=== PATIENT | female | born 1940 | race Caucasian/White ===

== ENCOUNTER 2017-10-31 20:11 | Inpatient (IN) | payer MEDICARE, BC ==
[~2017-10-31] VITALS: Ht 154.9 cm; Wt 50.9 kg
[~2017-10-31 20:11] MED LIST: AMLO5TAB2 PO; ATOR40TA3 PO; AZIT-63 PO; AZIT250T81 PO; BUDE10.2 INH; HYDR-3972 PO; QUIN40TA14 PO; SPIIN IH; SPIIN INH
[2017-10-31 21:11] LABS: BASOPHILS # (AUTO) 0.1 X10'3 (0-0.2); EOSINOPHILS % (AUTO) 0.1 % (0-6); HEMATOCRIT 39.9 % (35.0-45.0); HEMOGLOBIN 13.8 g/dl (12.0-16.0); LYMPHOCYTES # (AUTO) 1.9 X10'3 (1.1-4.8); LYMPHOCYTES % (AUTO) 12.8 % (21-51); MEAN CORPUSCULAR HEMOGLOBIN 29.5 PG (27.0-31.0); MEAN CORPUSCULAR HGB CONC 34.5 % (33.0-36.5); MEAN CORPUSCULAR VOLUME 85.6 FL (78-98); MEAN PLATELET VOLUME 6.7 FL (7.4-10.4); MONOCYTES # (AUTO) 1.2 X10'3 (0-0.9); MONOCYTES % (AUTO) 7.9 % (2-12); NEUTROPHILS # (AUTO) 11.8 X10'3 (1.8-7.7); NEUTROPHILS % (AUTO) 78.2 % (42-75); PLATELET COUNT 610 X10'3 (140-440); RED BLOOD COUNT 4.66 X10'6 (4.20-5.60); RED CELL DISTRIBUTION WIDTH 14.4 % (11.5-14.5); WHITE BLOOD COUNT 15.1 X10'3 (4.5-11.0)
[2017-10-31 21:23] LABS: INR 0.9 INR; PARTIAL THROMBOPLASTIN TIME 26 SECONDS (22-32); PROTHROMBIN TIME 9.6 SECONDS (9.0-12.0)
[2017-10-31 21:36] LABS: ALANINE AMINOTRANSFERASE 27 U/L (12-78); ALBUMIN/GLOBULIN RATIO 1.1 (1.1-1.5); ALKALINE PHOSPHATASE 115 IU/L (46-116); ANION GAP 14 (8-16); ASPARTATE AMINO TRANSFERASE 32 U/L (10-37); BILIRUBIN,TOTAL 0.7 MG/DL (0.1-1.0); BLOOD UREA NITROGEN 19 MG/DL (7-18); BUN/CREATININE RATIO 21.6 (6.6-38.0); CALCIUM 9.7 MG/DL (8.5-10.1); CHLORIDE 100 MMOL/L (99-107); CREATININE 0.88 MG/DL (0.40-0.90); GLUCOSE 127 MG/DL (70-104); POTASSIUM 4.4 MMOL/L (3.5-5.1); SODIUM 137 MMOL/L (135-145); TOTAL CARBON DIOXIDE 23.3 MMOL/L (24-32); TOTAL PROTEIN 7.5 G/DL (6.4-8.2); eGFR 62 ML/MIN
[2017-10-31] MEDS ORDERED: methylPREDNISolone sod succ 125mg/2ml vial IV ONE (23:45)
[2017-10-31] MEDS ORDERED: albuterol 2.5 MG/3 ML nebule CONTNEB PRN (23:45)
[2017-10-31] MEDS ORDERED: morphine 4 MG/ML inj SYRINge IV ONE (23:45)
[2017-10-31] MEDS ORDERED: ondansetron/PF 4mg/2ml inj IV ONE (23:45)
[2017-11-01] MEDS ORDERED: morphine 4 MG/ML inj SYRINge IV ONE ×2 (01:10→03:10)
[2017-11-01] MEDS ORDERED: iohexol 300mg/ml 100ml inj. ONE (01:13)
[2017-11-01] MEDS ORDERED: HYDROcodone/acetaminophen 10/325mg tab PO PRN (03:30)
[2017-11-01] MEDS ORDERED: magnesium hydroxide 30ml (MOM) UD suspension PO PRN (03:30)
[2017-11-01] MEDS ORDERED: acetaminophen 325mg tablet PO PRN (03:30)
[2017-11-01] MEDS ORDERED: mag hydrox/Alum hydrox/simeth 30ml oral suspension PO PRN (03:30)
[2017-11-01] MEDS ORDERED: QUIN20TA PO (03:41)
[2017-11-01] MEDS: famotidine 20mg tablet PO SCH ×2 (05:29→20:14)
[2017-11-01] MEDS ORDERED: amLODIPine 5mg tablet PO SCH (08:00)
[2017-11-01] MEDS ORDERED: enoxaparin 40mg/0.4ml syringe SUBCUT SCH (08:00)
[2017-11-01] MEDS ORDERED: lisinopril 20mg tablet PO SCH (08:00)
[2017-11-01] MEDS: lisinopril 20mg tablet PO SCH (08:00)
[2017-11-01] MEDS: methylPREDNISolone sod succ/PF 40mg inj. IV SCH ×2 (08:03→20:13)
[2017-11-01] MEDS: atorvastatin 20mg tablet PO SCH (08:04)
[2017-11-01] MEDS: montelukast 10mg tablet PO SCH (08:04)
[2017-11-01] MEDS: docusate sod 100mg capsule PO SCH ×2 (08:05→20:14)
[2017-11-01] MEDS: oxyCODONE IR 5mg (immed. release) tablet PO SCH ×4 (08:05→20:14)
[2017-11-01] MEDS ORDERED: heparin 10,000 units/1 ML INJ IV ONE (08:15)
[2017-11-01 08:27] LABS: BASOPHILS % (AUTO) 0 % (0-1); EOSINOPHILS # (AUTO) 0.3 X10'3 (0-0.9); EOSINOPHILS % (AUTO) 1.7 % (0-6); HEMATOCRIT 40.1 % (35.0-45.0); HEMOGLOBIN 13.6 g/dl (12.0-16.0); LYMPHOCYTES # (AUTO) 0.5 X10'3 (1.1-4.8); MEAN CORPUSCULAR HEMOGLOBIN 29.3 PG (27.0-31.0); MEAN CORPUSCULAR HGB CONC 33.9 % (33.0-36.5); MEAN CORPUSCULAR VOLUME 86.6 FL (78-98); MEAN PLATELET VOLUME 7.4 FL (7.4-10.4); MONOCYTES # (AUTO) 0.2 X10'3 (0-0.9); MONOCYTES % (AUTO) 1.3 % (2-12); NEUTROPHILS # (AUTO) 15.1 X10'3 (1.8-7.7); PLATELET COUNT 542 X10'3 (140-440); RED BLOOD COUNT 4.63 X10'6 (4.20-5.60); RED CELL DISTRIBUTION WIDTH 14.8 % (11.5-14.5); WHITE BLOOD COUNT 16.1 X10'3 (4.5-11.0)
[2017-11-01 09:18] LABS: PARTIAL THROMBOPLASTIN TIME 32 SECONDS (22-32)
[2017-11-01] MEDS ORDERED: aspirin 325mg tablet, delayed-release (Ecotrin) PO ONE (09:45)
[2017-11-01] MEDS ORDERED: metoprolol tartrate 25mg tablet PO SCH (09:45)
[2017-11-01] MEDS: morphine 4 MG/ML inj SYRINge IV PRN ×3 (11:33→22:07)
[2017-11-01] MEDS: carVEDilol 3.125mg tablet PO SCH ×2 (13:27→20:14)
[2017-11-01 13:57] LABS: CLARITY,URINE CLEAR (Clear); COLOR,URINE YELLOW (Yellow); GLUCOSE, URINE NEGATIVE (Neg); KETONES,URINE NEGATIVE (Neg); LEUKOCYTE ESTERASE ,URINE NEGATIVE (Neg); NITRITES, URINE NEGATIVE (Neg); OCCULT BLOOD,URINE NEGATIVE (Neg); PH,URINE 5.5 (4.8-8.0); PROTEIN,URINE TRACE mg/dl (Neg); UROBILINOGEN,URINE 0.2 E.U/dL (0.2-1.0)
[2017-11-01 14:01] LABS: UA COLLECTION TYPE VOIDED
[2017-11-01 14:02] LABS: SQUAMOUS EPITHELIAL CELL,UR FEW /LPF (FEW)
[2017-11-01 14:04] LABS: BACTERIA,URINE FEW /HPF (Neg); RBC,URINE 0-2 /HPF (0-2); WBC,URINE 0-4 /HPF (0-4)
[2017-11-01] MEDS: ipratropium/albuterol 3ml nebule IH PRN (14:49)
[2017-11-01] MEDS ORDERED: PRAV40TA3 (15:22)
[2017-11-01 15:44] LABS: PARTIAL THROMBOPLASTIN TIME 44 SECONDS (22-32)
[2017-11-01 21:00] VITALS: BP 100/60
[2017-11-01 22:46] LABS: PARTIAL THROMBOPLASTIN TIME 36 SECONDS (22-32)
[2017-11-01] MEDS: heparin 10,000 units/1 ML INJ IV PRN (23:47)
[2017-11-02] VITALS: BP 132/79
[2017-11-02] MEDS: oxyCODONE IR 5mg (immed. release) tablet PO SCH ×6 (00:41→20:53)
[2017-11-02] MEDS: morphine 4 MG/ML inj SYRINge IV PRN ×5 (05:49→23:15)
[2017-11-02 06:10] LABS: BASOPHILS # (AUTO) 0.1 X10'3 (0-0.2); BASOPHILS % (AUTO) 0.4 % (0-1); EOSINOPHILS % (AUTO) 0 % (0-6); HEMATOCRIT 36.7 % (35.0-45.0); HEMOGLOBIN 12.5 g/dl (12.0-16.0); LYMPHOCYTES # (AUTO) 0.9 X10'3 (1.1-4.8); LYMPHOCYTES % (AUTO) 5.7 % (21-51); MEAN CORPUSCULAR HEMOGLOBIN 29.6 PG (27.0-31.0); MEAN CORPUSCULAR HGB CONC 34.1 % (33.0-36.5); MEAN CORPUSCULAR VOLUME 86.7 FL (78-98); MEAN PLATELET VOLUME 7.4 FL (7.4-10.4); MONOCYTES # (AUTO) 0.7 X10'3 (0-0.9); MONOCYTES % (AUTO) 4.3 % (2-12); NEUTROPHILS # (AUTO) 14.9 X10'3 (1.8-7.7); NEUTROPHILS % (AUTO) 89.6 % (42-75); PLATELET COUNT 525 X10'3 (140-440); RED BLOOD COUNT 4.23 X10'6 (4.20-5.60); RED CELL DISTRIBUTION WIDTH 14.6 % (11.5-14.5); WHITE BLOOD COUNT 16.6 X10'3 (4.5-11.0)
[2017-11-02 06:24] LABS: ALBUMIN 3.4 G/DL (3.4-5.0); ANION GAP 9 (8-16); BLOOD UREA NITROGEN 35 MG/DL (7-18); BUN/CREATININE RATIO 26.3 (6.6-38.0); CALCIUM 9.5 MG/DL (8.5-10.1); CHLORIDE 99 MMOL/L (99-107); CREATININE 1.33 MG/DL (0.40-0.90); GLUCOSE 124 MG/DL (70-104); POTASSIUM 5.2 MMOL/L (3.5-5.1); SODIUM 134 MMOL/L (135-145); TOTAL CARBON DIOXIDE 25.7 MMOL/L (24-32); eGFR 38 ML/MIN
[2017-11-02 07:59] VITALS: BP 123/69
[2017-11-02] MEDS: atorvastatin 20mg tablet PO SCH (08:00)
[2017-11-02] MEDS: lisinopril 20mg tablet PO SCH (08:00)
[2017-11-02] MEDS ORDERED: aspirin 81mg tablet.DR PO SCH (08:30)
[2017-11-02] MEDS: methylPREDNISolone sod succ/PF 40mg inj. IV SCH ×2 (09:08→20:53)
[2017-11-02] MEDS: aspirin 81mg tablet.DR PO SCH (09:09)
[2017-11-02] MEDS: docusate sod 100mg capsule PO SCH ×2 (09:10→20:00)
[2017-11-02] MEDS: famotidine 20mg tablet PO SCH ×2 (09:10→20:53)
[2017-11-02] MEDS: montelukast 10mg tablet PO SCH (09:10)
[2017-11-02] MEDS: carVEDilol 3.125mg tablet PO SCH ×2 (09:10→20:53)
[2017-11-02] MEDS ORDERED: sodium polystyrene sulfonate 15gm/60ml oral suspension PO ONE (11:40)
[2017-11-02 12:20] VITALS: BP 118/56
[2017-11-02] MEDS: heparin 10,000 units/1 ML INJ IV PRN (13:12)
[2017-11-02] MEDS: ipratropium/albuterol 3ml nebule IH PRN (13:17)
[2017-11-02] MEDS: nitroGLYCERIN 1gm ointment UD TP SCH ×2 (13:19→20:54)
[2017-11-02] MEDS: levoFLOXACIN-Levaquin 500mg/D5 100 ML IV SCH (14:01)
[2017-11-02] MEDS: ondansetron/PF 4mg/2ml inj IV PRN ×2 (15:55→23:15)
[2017-11-02 19:00] VITALS: BP 111/76
[2017-11-02] MEDS: lisinopril 5mg tablet PO SCH (20:53)
[2017-11-02 23:45] VITALS: BP 125/69
[2017-11-03] VITALS: BP 120/61
[2017-11-03] MEDS: oxyCODONE IR 5mg (immed. release) tablet PO SCH ×6 (00:50→19:50)
[2017-11-03] MEDS: heparin 10,000 units/1 ML INJ IV PRN ×2 (02:29→10:29)
[2017-11-03] MEDS: nitroGLYCERIN 1gm ointment UD TP SCH ×4 (02:31→19:50)
[2017-11-03] MEDS: morphine 4 MG/ML inj SYRINge IV PRN ×4 (03:12→22:54)
[2017-11-03] MEDS: ipratropium/albuterol 3ml nebule NEB PRN ×4 (03:13→19:51)
[2017-11-03 05:10] LABS: BASOPHILS % (AUTO) 0.2 % (0-1); EOSINOPHILS # (AUTO) 0.1 X10'3 (0-0.9); EOSINOPHILS % (AUTO) 0.8 % (0-6); HEMATOCRIT 35.6 % (35.0-45.0); HEMOGLOBIN 12.3 g/dl (12.0-16.0); LYMPHOCYTES # (AUTO) 0.7 X10'3 (1.1-4.8); LYMPHOCYTES % (AUTO) 4.9 % (21-51); MEAN CORPUSCULAR HEMOGLOBIN 29.7 PG (27.0-31.0); MEAN CORPUSCULAR HGB CONC 34.6 % (33.0-36.5); MEAN CORPUSCULAR VOLUME 85.7 FL (78-98); MEAN PLATELET VOLUME 7.3 FL (7.4-10.4); MONOCYTES # (AUTO) 1.1 X10'3 (0-0.9); MONOCYTES % (AUTO) 7.5 % (2-12); NEUTROPHILS # (AUTO) 13.1 X10'3 (1.8-7.7); NEUTROPHILS % (AUTO) 86.6 % (42-75); PLATELET COUNT 481 X10'3 (140-440); RED BLOOD COUNT 4.15 X10'6 (4.20-5.60); RED CELL DISTRIBUTION WIDTH 14.7 % (11.5-14.5); WHITE BLOOD COUNT 15.1 X10'3 (4.5-11.0)
[2017-11-03 05:18] LABS: ANION GAP 10 (8-16); BLOOD UREA NITROGEN 37 MG/DL (7-18); BUN/CREATININE RATIO 32.5 (6.6-38.0); CALCIUM 8.8 MG/DL (8.5-10.1); CHLORIDE 98 MMOL/L (99-107); CREATININE 1.14 MG/DL (0.40-0.90); GLUCOSE 126 MG/DL (70-104); POTASSIUM 4.2 MMOL/L (3.5-5.1); SODIUM 136 MMOL/L (135-145); TOTAL CARBON DIOXIDE 27.6 MMOL/L (24-32); eGFR 46 ML/MIN
[2017-11-03 07:08] VITALS: BP 99/58
[2017-11-03] MEDS: atorvastatin 20mg tablet PO SCH (08:00)
[2017-11-03] MEDS: levoFLOXACIN-Levaquin 500mg/D5 100 ML IV SCH (08:41)
[2017-11-03] MEDS: methylPREDNISolone sod succ/PF 40mg inj. IV SCH ×2 (08:42→19:50)
[2017-11-03] MEDS: ondansetron/PF 4mg/2ml inj IV PRN (08:42)
[2017-11-03] MEDS: aspirin 81mg tablet.DR PO SCH (08:53)
[2017-11-03] MEDS: montelukast 10mg tablet PO SCH (08:54)
[2017-11-03] MEDS: famotidine 20mg tablet PO SCH ×2 (08:55→19:50)
[2017-11-03] MEDS: carVEDilol 3.125mg tablet PO SCH ×2 (08:56→19:50)
[2017-11-03] MEDS: docusate sod 100mg capsule PO SCH ×2 (08:56→19:50)
[2017-11-03 11:00] VITALS: BP 95/50
[2017-11-03 16:39] LABS: PARTIAL THROMBOPLASTIN TIME 58 SECONDS (22-32)
[2017-11-03 19:00] VITALS: BP 97/53
[2017-11-03 19:45] VITALS: BP 103/52
[2017-11-03] MEDS: lactobacillus rhamnosus 10,000 MMU CELLS/CAPSULE PO SCH (19:50)
[2017-11-03] MEDS: lisinopril 5mg tablet PO SCH (21:00)
[2017-11-03 23:45] VITALS: BP 101/62
[2017-11-04] MEDS: nitroGLYCERIN 1gm ointment UD TP SCH ×4 (02:13→20:15)
[2017-11-04] MEDS: ipratropium/albuterol 3ml nebule NEB PRN ×3 (02:23→20:49)
[2017-11-04] MEDS: morphine 4 MG/ML inj SYRINge IV PRN ×4 (02:42→22:55)
[2017-11-04] MEDS: oxyCODONE IR 5mg (immed. release) tablet PO SCH ×6 (04:38→20:14)
[2017-11-04 05:27] LABS: BASOPHILS % (AUTO) 0.2 % (0-1); EOSINOPHILS % (AUTO) 0 % (0-6); HEMATOCRIT 35.4 % (35.0-45.0); HEMOGLOBIN 11.9 g/dl (12.0-16.0); LYMPHOCYTES # (AUTO) 0.6 X10'3 (1.1-4.8); LYMPHOCYTES % (AUTO) 6.9 % (21-51); MEAN CORPUSCULAR HEMOGLOBIN 29.1 PG (27.0-31.0); MEAN CORPUSCULAR HGB CONC 33.6 % (33.0-36.5); MEAN CORPUSCULAR VOLUME 86.4 FL (78-98); MEAN PLATELET VOLUME 7.2 FL (7.4-10.4); MONOCYTES # (AUTO) 0.6 X10'3 (0-0.9); MONOCYTES % (AUTO) 6.8 % (2-12); NEUTROPHILS # (AUTO) 7.1 X10'3 (1.8-7.7); NEUTROPHILS % (AUTO) 86.1 % (42-75); PLATELET COUNT 440 X10'3 (140-440); RED BLOOD COUNT 4.09 X10'6 (4.20-5.60); RED CELL DISTRIBUTION WIDTH 14.7 % (11.5-14.5); WHITE BLOOD COUNT 8.2 X10'3 (4.5-11.0)
[2017-11-04 05:59] LABS: ALBUMIN 2.8 G/DL (3.4-5.0); ANION GAP 10 (8-16); BLOOD UREA NITROGEN 41 MG/DL (7-18); BUN/CREATININE RATIO 31.5 (6.6-38.0); CALCIUM 8.8 MG/DL (8.5-10.1); CHLORIDE 96 MMOL/L (99-107); GLUCOSE 117 MG/DL (70-104); POTASSIUM 3.9 MMOL/L (3.5-5.1); SODIUM 135 MMOL/L (135-145); TOTAL CARBON DIOXIDE 29.3 MMOL/L (24-32); eGFR 40 ML/MIN
[2017-11-04 08:00] VITALS: BP 126/57
[2017-11-04] MEDS: lactobacillus rhamnosus 10,000 MMU CELLS/CAPSULE PO SCH ×2 (08:00→20:13)
[2017-11-04] MEDS: aspirin 81mg tablet.DR PO SCH (08:00)
[2017-11-04] MEDS: docusate sod 100mg capsule PO SCH ×2 (08:00→20:14)
[2017-11-04] MEDS: atorvastatin 20mg tablet PO SCH (08:14)
[2017-11-04] MEDS: carVEDilol 3.125mg tablet PO SCH ×2 (08:15→20:14)
[2017-11-04] MEDS: famotidine 20mg tablet PO SCH ×2 (08:15→20:14)
[2017-11-04] MEDS: montelukast 10mg tablet PO SCH (08:16)
[2017-11-04] MEDS: methylPREDNISolone sod succ/PF 40mg inj. IV SCH ×2 (08:16→20:16)
[2017-11-04] MEDS: levoFLOXACIN-Levaquin 500mg/D5 100 ML IV SCH (08:17)
[2017-11-04] MEDS: heparin 10,000 units/1 ML INJ IV PRN (12:20)
[2017-11-04 18:00] VITALS: BP 114/72
[2017-11-04 18:39] VITALS: BP 145/70
[2017-11-04] MEDS: lisinopril 5mg tablet PO SCH (20:13)
[2017-11-05] MEDS: oxyCODONE IR 5mg (immed. release) tablet PO SCH ×7 (00:02→23:54)
[2017-11-05] MEDS: nitroGLYCERIN 1gm ointment UD TP SCH ×4 (04:09→20:29)
[2017-11-05 06:52] LABS: BASOPHILS % (AUTO) 0.4 % (0-1); EOSINOPHILS % (AUTO) 0 % (0-6); HEMATOCRIT 37.3 % (35.0-45.0); HEMOGLOBIN 12.8 g/dl (12.0-16.0); LYMPHOCYTES # (AUTO) 0.7 X10'3 (1.1-4.8); LYMPHOCYTES % (AUTO) 8.3 % (21-51); MEAN CORPUSCULAR HEMOGLOBIN 29.5 PG (27.0-31.0); MEAN CORPUSCULAR HGB CONC 34.2 % (33.0-36.5); MEAN CORPUSCULAR VOLUME 86.4 FL (78-98); MEAN PLATELET VOLUME 7.2 FL (7.4-10.4); MONOCYTES # (AUTO) 0.8 X10'3 (0-0.9); MONOCYTES % (AUTO) 9.5 % (2-12); NEUTROPHILS % (AUTO) 81.8 % (42-75); PLATELET COUNT 543 X10'3 (140-440); RED BLOOD COUNT 4.32 X10'6 (4.20-5.60); RED CELL DISTRIBUTION WIDTH 14.6 % (11.5-14.5); WHITE BLOOD COUNT 8.5 X10'3 (4.5-11.0)
[2017-11-05 07:01] LABS: ALBUMIN 2.7 G/DL (3.4-5.0); ANION GAP 5 (8-16); BLOOD UREA NITROGEN 34 MG/DL (7-18); CHLORIDE 100 MMOL/L (99-107); CREATININE 1.03 MG/DL (0.40-0.90); GLUCOSE 113 MG/DL (70-104); SODIUM 138 MMOL/L (135-145); TOTAL CARBON DIOXIDE 33.1 MMOL/L (24-32); eGFR 52 ML/MIN
[2017-11-05 07:48] VITALS: BP 112/68
[2017-11-05] MEDS: levoFLOXACIN-Levaquin 500mg/D5 100 ML IV SCH (08:54)
[2017-11-05] MEDS: famotidine 20mg tablet PO SCH ×2 (08:55→20:30)
[2017-11-05] MEDS: atorvastatin 20mg tablet PO SCH (08:55)
[2017-11-05] MEDS: montelukast 10mg tablet PO SCH (08:55)
[2017-11-05] MEDS: aspirin 81mg tablet.DR PO SCH (08:56)
[2017-11-05] MEDS: lactobacillus rhamnosus 10,000 MMU CELLS/CAPSULE PO SCH ×2 (08:56→20:29)
[2017-11-05] MEDS: docusate sod 100mg capsule PO SCH ×2 (08:56→20:31)
[2017-11-05] MEDS: carVEDilol 3.125mg tablet PO SCH ×2 (08:57→20:29)
[2017-11-05] MEDS: methylPREDNISolone sod succ/PF 40mg inj. IV SCH ×2 (08:57→20:29)
[2017-11-05] MEDS: morphine 4 MG/ML inj SYRINge IV PRN ×2 (11:05→23:53)
[2017-11-05 11:41] VITALS: BP 140/70
[2017-11-05 14:50] VITALS: BP 120/71
[2017-11-05] MEDS: ipratropium/albuterol 3ml nebule NEB PRN (16:01)
[2017-11-05] MEDS ORDERED: MONT10TA24 PO (17:13)
[2017-11-05] MEDS ORDERED: FAMO20TA8 PO (17:13)
[2017-11-05] MEDS ORDERED: LACT1CAP26 PO (17:13)
[2017-11-05] MEDS ORDERED: ASPI-1071 PO (17:13)
[2017-11-05] MEDS ORDERED: IPRA3AMP9 NEB (17:13)
[2017-11-05] MEDS ORDERED: COR3.125T PO (17:13)
[2017-11-05] MEDS ORDERED: LEVO500T2 PO (17:13)
[2017-11-05] MEDS ORDERED: FLUT1BLS3 INH (17:17)
[2017-11-05] MEDS ORDERED: UMEC62.5 INH (17:17)
[2017-11-05] MEDS ORDERED: METH4TAB81 PO (17:17)
[2017-11-05 20:00] VITALS: BP 126/61
[2017-11-05] MEDS: lisinopril 5mg tablet PO SCH (20:30)
[2017-11-05 23:00] VITALS: BP 147/73
[2017-11-06] MEDS: nitroGLYCERIN 1gm ointment UD TP SCH ×2 (02:29→08:40)
[2017-11-06] MEDS: oxyCODONE IR 5mg (immed. release) tablet PO SCH ×3 (04:00→11:40)
[2017-11-06 06:07] LABS: ALBUMIN 2.8 G/DL (3.4-5.0); ANION GAP 7 (8-16); BLOOD UREA NITROGEN 29 MG/DL (7-18); BUN/CREATININE RATIO 26.4 (6.6-38.0); CALCIUM 9.1 MG/DL (8.5-10.1); CHLORIDE 99 MMOL/L (99-107); GLUCOSE 117 MG/DL (70-104); POTASSIUM 3.9 MMOL/L (3.5-5.1); SODIUM 138 MMOL/L (135-145); TOTAL CARBON DIOXIDE 32.1 MMOL/L (24-32); eGFR 48 ML/MIN
[2017-11-06 06:49] LABS: BASOPHILS % (AUTO) 0.3 % (0-1); EOSINOPHILS % (AUTO) 0 % (0-6); HEMATOCRIT 37.4 % (35.0-45.0); HEMOGLOBIN 12.7 g/dl (12.0-16.0); LYMPHOCYTES # (AUTO) 0.9 X10'3 (1.1-4.8); LYMPHOCYTES % (AUTO) 9.2 % (21-51); MEAN CORPUSCULAR HEMOGLOBIN 29.4 PG (27.0-31.0); MEAN CORPUSCULAR HGB CONC 33.8 % (33.0-36.5); MEAN CORPUSCULAR VOLUME 87.1 FL (78-98); MEAN PLATELET VOLUME 7.8 FL (7.4-10.4); MONOCYTES # (AUTO) 0.7 X10'3 (0-0.9); MONOCYTES % (AUTO) 7.2 % (2-12); NEUTROPHILS # (AUTO) 8.4 X10'3 (1.8-7.7); NEUTROPHILS % (AUTO) 83.3 % (42-75); PLATELET COUNT 545 X10'3 (140-440); RED CELL DISTRIBUTION WIDTH 14.7 % (11.5-14.5)
[2017-11-06] MEDS: levoFLOXACIN-Levaquin 500mg/D5 100 ML IV SCH (08:38)
[2017-11-06] MEDS: carVEDilol 3.125mg tablet PO SCH (08:39)
[2017-11-06] MEDS: docusate sod 100mg capsule PO SCH (08:39)
[2017-11-06] MEDS: lactobacillus rhamnosus 10,000 MMU CELLS/CAPSULE PO SCH (08:39)
[2017-11-06] MEDS: methylPREDNISolone sod succ/PF 40mg inj. IV SCH (08:39)
[2017-11-06] MEDS: aspirin 81mg tablet.DR PO SCH (08:39)
[2017-11-06] MEDS: famotidine 20mg tablet PO SCH (08:40)
[2017-11-06] MEDS: montelukast 10mg tablet PO SCH (08:40)
[2017-11-06] MEDS: atorvastatin 20mg tablet PO SCH (08:40)
[2017-11-06 09:03] VITALS: BP 132/67
[2017-11-06 13:40] VITALS: BP 145/72
== END 2017-11-06 14:30 | disposition home or self-care (01) | DRG 280 ==
LOC: ER 20:12 → ED HOLD 11-01 03:28 → EDBEDREQ 11-01 19:42 → SUR 3N 11-01 22:00
PROVIDERS: ADMIT Family Medicine; ATTEND Internal Medicine
PROC: BW241ZZ Computerized Tomography (CT Scan) of Chest and Abdomen using Low Osmolar Contrast (ICD-10-PCS; principal; 2017-11-01)
DX: I21.4 Non-ST elevation (NSTEMI) myocardial infarction (principal); J18.9 Pneumonia, unspecified organism; J44.0 Chronic obstructive pulmonary disease with (acute) lower respiratory infection; S22.42XA Multiple fractures of ribs, left side, initial encounter for closed fracture; E87.5 Hyperkalemia; J44.1 Chronic obstructive pulmonary disease with (acute) exacerbation; W01.0XXA Fall on same level from slipping, tripping and stumbling without subsequent striking against object, initial encounter; E78.5 Hyperlipidemia, unspecified; I10 Essential (primary) hypertension; G89.29 Other chronic pain; I83.90 Asymptomatic varicose veins of unspecified lower extremity; J20.9 Acute bronchitis, unspecified; M54.9 Dorsalgia, unspecified; M81.0 Age-related osteoporosis without current pathological fracture; R33.9 Retention of urine, unspecified; R91.1 Solitary pulmonary nodule; N28.9 Disorder of kidney and ureter, unspecified; R09.02 Hypoxemia; Z53.29 Procedure and treatment not carried out because of patient's decision for other reasons; Z98.51 Tubal ligation status; Z72.0 Tobacco use; Z88.2 Allergy status to sulfonamides; Z79.899 Other long term (current) drug therapy; Z86.73 Personal history of transient ischemic attack (TIA), and cerebral infarction without residual deficits; Z82.5 Family history of asthma and other chronic lower respiratory diseases; Z71.6 Tobacco abuse counseling; Y93.89 Activity, other specified; Y92.89 Other specified places as the place of occurrence of the external cause; Y99.8 Other external cause status
CPT/HCPCS: 36415; 71045; 74176; 80048; 80053; 81001; 82800; 83605; 84145; 84484; 85025; 85610; 85730; 87040; 87070; 93306; 94640; 94760; 96374; 96375; 96376; 97116; 97161; 97530; 99285; A6212; A6213; A6223; A6258; A6446; A6449; J1644; J1650; J1956; J2270; J2405; J2920; J2930; Q9967

== ENCOUNTER 2019-07-13 10:48 | Emergency (ER) | payer MEDICARE, BC ==
[~2019-07-13] VITALS: Ht 154.9 cm; Wt 53.6 kg
[~2019-07-13 10:48] MED LIST changes: +ASPI-1071 PO; -ATOR40TA3 PO; -AZIT250T81 PO; +COR3.125T PO; +FAMO20TA8 PO; +FLUT1BLS3 INH; +IPRA3AMP9 NEB; +LACT1CAP26 PO; +METH4TAB81 PO; +MONT10TA24 PO; +PRAV40TA3; +QUIN20TA PO; -QUIN40TA14 PO; -SPIIN IH; +UMEC62.5 INH
[2019-07-13 11:04] VITALS: BP 205/80
[2019-07-13] MEDS ORDERED: HYDROcodone/acetaminophen 10/325mg tab PO ONE (13:25)
[2019-07-13] MEDS ORDERED: HYDR-4353 PO (14:55)
== END 2019-07-13 15:14 | disposition home or self-care (01) ==
LOC: ER 10:49
DX: S32.401A Unspecified fracture of right acetabulum, initial encounter for closed fracture (principal); S32.591A Other specified fracture of right pubis, initial encounter for closed fracture; I10 Essential (primary) hypertension; J44.9 Chronic obstructive pulmonary disease, unspecified; M81.0 Age-related osteoporosis without current pathological fracture; Z98.51 Tubal ligation status; Z98.890 Other specified postprocedural states; Z88.2 Allergy status to sulfonamides; Z88.1 Allergy status to other antibiotic agents; Z79.82 Long term (current) use of aspirin; Z79.899 Other long term (current) drug therapy; Z79.2 Long term (current) use of antibiotics; W18.39XA Other fall on same level, initial encounter; Y93.01 Activity, walking, marching and hiking; Y92.89 Other specified places as the place of occurrence of the external cause; Y99.8 Other external cause status
CPT/HCPCS: 72131; 72192; 99284

== ENCOUNTER 2019-09-14 12:38 | Emergency (ER) | payer MEDICARE, BC ==
[~2019-09-14] VITALS: Ht 167.6 cm; Wt 59.0 kg
[~2019-09-14 12:38] MED LIST changes: -MONT10TA24 PO; +MONT10TA26 PO
[2019-09-14] MEDS ORDERED: ipratropium/albuterol 3ml nebule NEB ONE (13:55)
[2019-09-14] MEDS ORDERED: morphine 4 MG/ML inj SYRINge IM ONE (13:55)
[2019-09-14] MEDS ORDERED: predniSONE 20 mg tablet PO ONE (13:55)
[2019-09-14] MEDS ORDERED: HYDROcodone/acetaminophen 10/325mg tab PO ONE (13:55)
[2019-09-14] MEDS ORDERED: PRED20TA PO (14:33)
[2019-09-14] MEDS ORDERED: ALBU18HF2 INH (14:33)
[2019-09-14] MEDS ORDERED: HYDR-4353 PO (14:33)
[2019-09-14 15:06] VITALS: BP 169/118
== END 2019-09-14 15:03 | disposition home or self-care (01) ==
LOC: ER 12:39
DX: M54.5 Low back pain (principal); J44.1 Chronic obstructive pulmonary disease with (acute) exacerbation; R91.1 Solitary pulmonary nodule; M54.6 Pain in thoracic spine; I10 Essential (primary) hypertension; M81.0 Age-related osteoporosis without current pathological fracture; Z98.51 Tubal ligation status; Z86.73 Personal history of transient ischemic attack (TIA), and cerebral infarction without residual deficits; Z88.2 Allergy status to sulfonamides; Z88.1 Allergy status to other antibiotic agents; Z79.82 Long term (current) use of aspirin; Z79.899 Other long term (current) drug therapy
CPT/HCPCS: 71045; 72100; 94640; 99284; J2270; J7512; 94760

== ENCOUNTER 2019-12-13 08:32 | Emergency (ER) | payer MEDICARE, BC ==
[~2019-12-13] VITALS: Ht 157.5 cm; Wt 42.0 kg
[~2019-12-13 08:32] MED LIST changes: +ALBU18HF2 INH
[2019-12-13] MEDS ORDERED: HYDROcodone/acetaminophen 10/325mg tab PO ONE (09:15)
[2019-12-13] MEDS ORDERED: losartan 50mg tablet PO ONE (09:30)
[2019-12-13 10:00] VITALS: BP 192/114
[2019-12-13] MEDS ORDERED: HYDR-4353 PO (10:03)
== END 2019-12-13 10:30 | disposition home or self-care (01) ==
LOC: ER 08:32
DX: M54.5 Low back pain (principal); G89.29 Other chronic pain; M54.6 Pain in thoracic spine; I10 Essential (primary) hypertension; J44.9 Chronic obstructive pulmonary disease, unspecified; M81.0 Age-related osteoporosis without current pathological fracture; Z86.73 Personal history of transient ischemic attack (TIA), and cerebral infarction without residual deficits; Z98.51 Tubal ligation status; Z98.890 Other specified postprocedural states; Z88.2 Allergy status to sulfonamides; Z88.1 Allergy status to other antibiotic agents; Z79.82 Long term (current) use of aspirin; Z79.2 Long term (current) use of antibiotics; Z79.899 Other long term (current) drug therapy
CPT/HCPCS: 99284

== ENCOUNTER 2020-01-04 23:11 | Emergency (ER) | payer MEDICARE, BC ==
[~2020-01-04] VITALS: Ht 172.7 cm; Wt 70.0 kg
[~2020-01-04 23:11] MED LIST changes: -ALBU18HF2 INH; -AMLO5TAB2 PO; +APIX5TAB3 PO; -ASPI-1071 PO; -AZIT-63 PO; +CARI-431 PO; +CLOP75TA35 PO; -COR3.125T PO; -FAMO20TA8 PO; -FLUT1BLS3 INH; +GABA-530 PO; -HYDR-3972 PO; +HYDR-4383 PO; -IPRA3AMP9 NEB; -LACT1CAP26 PO; +LIDO700A47 TP; -METH4TAB81 PO; -MONT10TA26 PO; +OMEP-50 PO; -PRAV40TA3; -QUIN20TA PO; +QUIN20TA18 PO; -SPIIN INH; +TRAZ-251 PO; -UMEC62.5 INH; +epiNEPHrine 0.1mg/ml 10ml syringe ONE
--- NOTE | 2020-01-04 23:11 | NUR ---
Pt arriving to room, CPR is in progress by EMS. 1x EPI given at this time.
--- NOTE | 2020-01-04 23:12 | NUR ---
EMS reports that IO has been lost.
--- NOTE | 2020-01-04 23:14 | NUR ---
Family on the phone with CRN at this time reporting that the patient is a DNR. Ohlfs to talk to family to confirm. CPR continued at this time.
--- NOTE | 2020-01-04 23:15 | NUR ---
New IO established by EDUAR [place] 1x EPI delivered. Addendum: 01/04/20 at 2335 by MAINOR New IO established by RN. Lee 1x EPI delivered.
--- NOTE | 2020-01-04 23:17 | NUR ---
CPR stopped at this time. Pulse reported by RN. Ohlfs ordered EKG and US setup. Bolus IV NS initiated at this time.
--- NOTE | 2020-01-04 23:19 | NUR ---
x1 Epi and x1 calcium administered as this time.
--- NOTE | 2020-01-04 23:23 | NUR ---
still at bedside, performed US of heart.
--- NOTE | 2020-01-04 23:23 | NUR ---
x1 epi and x1 calcium chloride given at this time.
--- NOTE | 2020-01-04 23:27 | NUR ---
No pulse reported by MD and RN.
--- NOTE | 2020-01-04 23:28 | NUR ---
called time of [id number].
--- NOTE | 2020-01-05 00:17 | NUR ---
Spoke with deputy Fam and information provided re decased. Authorization to release body to mortuary obtained.
--- NOTE | 2020-01-05 00:20 | NUR ---
Daughter at bedside.
--- NOTE | 2020-01-05 00:33 | NUR ---
Spoke with Ag Campos from [facility]. Reference # [id number]
--- NOTE | 2020-01-05 00:45 | NUR ---
Call out made to [facility] per family request. Spoke with staff and information regarding the was provided. ETA for transfer around 0130.
== END 2020-01-05 02:32 | disposition expired ==
LOC: ER 23:11
DX: I46.9 Cardiac arrest, cause unspecified (principal); I10 Essential (primary) hypertension; J44.9 Chronic obstructive pulmonary disease, unspecified; M81.0 Age-related osteoporosis without current pathological fracture; Z86.73 Personal history of transient ischemic attack (TIA), and cerebral infarction without residual deficits; Z98.51 Tubal ligation status; Z98.890 Other specified postprocedural states; Z88.2 Allergy status to sulfonamides; Z88.1 Allergy status to other antibiotic agents; Z79.01 Long term (current) use of anticoagulants; Z79.899 Other long term (current) drug therapy
CPT/HCPCS: 31500; 92950; 93005; 99285; J0171